=== PATIENT | female | born 1960 | race Caucasian/White ===

== ENCOUNTER 2022-04-27 19:11 | Inpatient (IN) | payer OTHER ==
[2022-04-27 19:21] VITALS: BMI 34.9
[2022-04-27] MEDS ORDERED: ONDANSETRON 4 MG/2 ML VIAL IVPB ONE (19:46)
[2022-04-27] MEDS ORDERED: SODIUM CHLORIDE 1,000 ML IV ONE (19:46)
[2022-04-27] MEDS ORDERED: ONDANSETRON 4 MG/2 ML VIAL ONE (19:50)
[2022-04-27 19:54] LABS: HEMATOCRIT 45.8 % (32.4-45.2); HEMOGLOBIN 15.7 G/dL (10.7-15.3); MCH 28.1 pg (25.7-33.7); MCHC 34.3 g/dl (32.0-36.0); MEAN CELL VOLUME 81.9 fl (80-96); MEAN PLT VOLUME 7.6 fl (7.5-11.1); PLATELET COUNT 328.6 10^3/uL (134-434); RBC 5.59 10^6/uL (3.60-5.2); RDW 14.9 % (11.6-15.6); WHITE BLOOD COUNT 12.3 10^3/uL (4.0-10.8)
[2022-04-27 20:08] LABS: ALBUMIN 3.9 g/dl (3.4-5.0); BILIRUBIN,TOTAL 2.4 mg/dl (0.2-1); CALCIUM 8.5 mg/dl (8.5-10); CREATININE 0.8 mg/dl (0.55-1.3); TOT PROT 7.1 g/dl (6.4-8.2)
[2022-04-27 20:33] LABS: PLATELET ESTIMATE ADEQUATE
[2022-04-27] MEDS ORDERED: CEFTRIAXONE 1,000 MG in DEXTROSE 5%-WATER - 50 ML IVPB ONE (21:04)
[2022-04-27] MEDS ORDERED: AZITHROMYCIN IVPB 500 MG in DEXTROSE 5%-WATER - 250 ML IVPB ONE (21:17)
[2022-04-27] MEDS ORDERED: AZITHROMYCIN 500 MG VIAL IVPB ONE (21:33)
[2022-04-27] MEDS ORDERED: cefTRIAXone SODIUM 1 GM VIAL ONE (21:33)
[2022-04-27] MEDS ORDERED: ALPRAZolam 1 MG TABLET PO PRN (21:53)
[2022-04-27] MEDS ORDERED: ACETAMINOPHEN 325 MG TABLET (FP) PO PRN (22:53)
[2022-04-27] MEDS ORDERED: ALPRAZolam 0.25 MG TABLET PO PRN (22:56)
[2022-04-27] MEDS ORDERED: OSELTAMIVIR PHOSPHATE 75 MG CAPSULE ONE (23:25)
[2022-04-27] MEDS: OSELTAMIVIR PHOSPHATE 75 MG CAPSULE PO SCH (23:34)
[2022-04-28 06:11] LABS: CALCIUM 8.2 mg/dL (8.5-10.1)
[2022-04-28 06:12] LABS: BLOOD UREA NITROGEN 6.5 mg/dL (7-18)
[2022-04-28 06:15] LABS: CREATININE 0.7 mg/dL (0.55-1.3)
[2022-04-28] MEDS ORDERED: SODIUM CHLORIDE 1,000 ML IV SCH (06:15)
[2022-04-28 09:37] LABS: CALCIUM 8.3 mg/dl (8.5-10); CREATININE 0.7 mg/dl (0.55-1.3)
[2022-04-28] MEDS: AZITHROMYCIN IVPB 500 MG/250 ML BAG IVPB SCH (10:32)
[2022-04-28] MEDS: OSELTAMIVIR PHOSPHATE 75 MG CAPSULE PO SCH ×2 (10:32→21:36)
[2022-04-28] MEDS: CEFTRIAXONE 1 GM in DEXTROSE 5%-WATER - 50 ML IVPB SCH (10:32)
[2022-04-28 11:44] LABS: BASO % 0.5 % (0-2.0); EOS % 0.2 % (0-4.5); HEMATOCRIT 42.7 % (32.4-45.2); HEMOGLOBIN 14.1 GM/dL (10.7-15.3); LYMPH % 11.3 % (8-40); MCH 27.9 pg (25.7-33.7); MCHC 33.2 g/dl (32.0-36.0); MEAN CELL VOLUME 84.1 fl (80-96); MEAN PLT VOLUME 7.6 fl (7.5-11.1); MONO % 19.9 % (3.8-10.2); NEUT % 68.1 % (42.8-82.8); PLATELET COUNT 322 10^3/uL (134-434); RBC 5.07 M/mm3 (3.60-5.2); RDW 13.6 % (11.6-15.6); WHITE BLOOD COUNT 6.9 K/mm3 (4.0-10.0)
[2022-04-28 12:28] LABS: BLOOD UREA NITROGEN 5.8 mg/dL (7-18); CALCIUM 8.6 mg/dL (8.5-10.1)
[2022-04-28 12:32] LABS: CREATININE 0.7 mg/dL (0.55-1.3)
[2022-04-28 16:45] LABS: ALBUMIN 3.1 g/dl (3.4-5.0); BILIRUBIN,DIRECT 0.2 mg/dL (0.0-0.2); BILIRUBIN,TOTAL 0.6 mg/dL (0.2-1); TOT PROT 6.3 g/dl (6.4-8.2)
[2022-04-28 16:49] LABS: CALCIUM 8.4 mg/dL (8.5-10.1)
[2022-04-28 16:51] LABS: BLOOD UREA NITROGEN 5.8 mg/dL (7-18)
[2022-04-28 16:53] LABS: CREATININE 0.7 mg/dL (0.55-1.3)
[2022-04-28 17:02] LABS: N-TERMINAL BNP 561.1 pg/ml (5-125)
[2022-04-29] MEDS: AZITHROMYCIN IVPB 500 MG/250 ML BAG IVPB SCH (09:20)
[2022-04-29] MEDS: CEFTRIAXONE 1 GM in DEXTROSE 5%-WATER - 50 ML IVPB SCH (09:20)
[2022-04-29 09:52] LABS: CALCIUM 8.6 mg/dL (8.5-10.1)
[2022-04-29 09:53] LABS: BLOOD UREA NITROGEN 7.1 mg/dL (7-18)
[2022-04-29 09:56] LABS: CREATININE 0.8 mg/dL (0.55-1.3)
[2022-04-29 10:01] LABS: URIC ACID 4.3 mg/dL (2.6-7.2)
[2022-04-29] MEDS: OSELTAMIVIR PHOSPHATE 75 MG CAPSULE PO SCH ×2 (10:56→21:22)
[2022-04-29] MEDS ORDERED: POTASSIUM CHLORIDE TABS 20 MEQ TABLET.ER (FP) PO ONE (12:00)
[2022-04-29] MEDS ORDERED: POTASSIUM CHLORIDE TABS 20 MEQ TABLET.ER (FP) PO SCH ×2 (13:30→22:00)
[2022-04-29 18:34] LABS: MAGNESIUM 1.9 mg/dL (1.8-2.4)
[2022-04-30 08:26] VITALS: RESP 18
[2022-04-30] MEDS: CEFTRIAXONE 1 GM in DEXTROSE 5%-WATER - 50 ML IVPB SCH (09:05)
[2022-04-30 10:09] LABS: CALCIUM 8.8 mg/dL (8.5-10.1)
[2022-04-30 10:10] LABS: BLOOD UREA NITROGEN 6.8 mg/dL (7-18)
[2022-04-30 10:11] LABS: MAGNESIUM 2.1 mg/dL (1.8-2.4)
[2022-04-30 10:14] LABS: CREATININE 0.7 mg/dL (0.55-1.3)
[2022-04-30] MEDS: AZITHROMYCIN IVPB 500 MG/250 ML BAG IVPB SCH (10:45)
[2022-04-30] MEDS: OSELTAMIVIR PHOSPHATE 75 MG CAPSULE PO SCH (14:09)
[2022-04-30 16:05] VITALS: BP 158/80; PULSE 72; TEMP 97.6
== END 2022-04-30 18:27 | disposition home or self-care (01) | DRG 425 ==
LOC: FER 19:11 → FM/S 20:45 → J4S 04-28 09:12
PROVIDERS: ADMIT Internal Medicine; ATTEND Nurse Practitioner Acute Care
DX: E87.1 Hypo-osmolality and hyponatremia (principal); J10.00 Influenza due to other identified influenza virus with unspecified type of pneumonia; R50.9 Fever, unspecified; R11.10 Vomiting, unspecified; R53.1 Weakness; F40.00 Agoraphobia, unspecified; I24.8 Other forms of acute ischemic heart disease; E66.9 Obesity, unspecified; Z68.34 Body mass index [BMI] 34.0-34.9, adult; L40.9 Psoriasis, unspecified; Q60.0 Renal agenesis, unilateral; R73.03 Prediabetes
CPT/HCPCS: 0241U-QW; 36415; 71045-TC-FY; 80048; 80053; 80061; 80076; 81003; 81015; 82533; 82962; 83036; 83735; 83880; 83930; 83935; 84439; 84443; 84484; 84550; 85025; 85027; 87040; 87086; 93005; 99285-25